=== PATIENT | female | born 1985 | race Caucasian/White ===

== ENCOUNTER → 2017-09-28 | Outpatient (CLI) | payer SELFPAY ==
[2015-11-17 11:30] VITALS: BP 115/72
[2017-09-28 12:41] LABS: CLUE CELLS PRESENT (Not Observd)
== END ==
LOC: LAB 10:39
PROVIDERS: Nurse Practitioner Family
DX: Z11.3 Encounter for screening for infections with a predominantly sexual mode of transmission (principal); Z20.2 Contact with and (suspected) exposure to infections with a predominantly sexual mode of transmission; N89.8 Other specified noninflammatory disorders of vagina
CPT/HCPCS: Q0111

== ENCOUNTER 2023-03-29 12:35 | Emergency (ER) | payer SELFPAY ==
[~2023-03-29] VITALS: Ht 157.5 cm; Wt 59.1 kg
[~2023-03-29 12:35] MED LIST: CEPHALEXIN500 M1 PO
[2023-03-29] MEDS ORDERED: Ibuprofen 200 MG TAB PO ONE (13:00)
[2023-03-29] MEDS ORDERED: CEFDINIR300 MG PO (13:18)
[2023-03-29 13:30] VITALS: BP 145/87
== END 2023-03-29 14:13 | disposition home or self-care (01) ==
LOC: ED 12:35
DX: H66.92 Otitis media, unspecified, left ear (principal); U07.1 COVID-19; F17.290 Nicotine dependence, other tobacco product, uncomplicated; Z88.0 Allergy status to penicillin; Z73.0 Burn-out; Z28.310 Unvaccinated for COVID-19

== ENCOUNTER 2023-05-30 11:26 | Emergency (ER) | payer SELFPAY ==
[~2023-05-30] VITALS: Ht 160 cm; Wt 61.4 kg
[~2023-05-30 11:26] MED LIST changes: +CEFDINIR300 MG PO
[2023-05-30] MEDS ORDERED: DIFLUCAN100 M1 PO (12:40)
[2023-05-30] MEDS ORDERED: MORGIDOX 2X100100 MG PO (12:40)
[2023-05-30] MEDS ORDERED: Doxycycline Monohydrate 100 MG CAPSULE PO ONE (12:45)
[2023-05-30] MEDS ORDERED: HEMORRHOIDAL RE30 GM TP (12:48)
[2023-05-30 13:03] VITALS: BP 129/85
== END 2023-05-30 13:00 | disposition home or self-care (01) ==
LOC: ED 11:26
DX: B37.2 Candidiasis of skin and nail (principal); F17.210 Nicotine dependence, cigarettes, uncomplicated; Z72.51 High risk heterosexual behavior; Z88.0 Allergy status to penicillin
CPT/HCPCS: J0696